=== PATIENT | female | born 1975 | race American Indian/Alaskan Native ===

== ENCOUNTER 2018-03-19 19:53 | Emergency (ER) | payer SELFPAY ==
[2018-03-19 21:59] LABS: BUN/Creatinine Ratio 20; Blood Urea Nitrogen 10 mg/dL (7-17); Calcium 8.9 mg/dL (8.4-10.2); Hemolysis Index 2
[2018-03-19 22:19] LABS: Hematocrit 36.1 % (30.3-42.9); Hemoglobin 11.9 gm/dl (10.1-14.3); Mean Corpuscular HGB Conc 33 % (30-34); Mean Corpuscular Hemoglobin 27 pg (28-32); Mean Corpuscular Volume 80 fl (79-97); Platelet Count 267 K/mm3 (140-440); Red Blood Count 4.48 M/mm3 (3.65-5.03)
[2018-03-20 04:04] VITALS: BP 116/82
--- NOTE | 2018-03-20 04:05 | Emergency Department Report ---
ED General Adult HPI - General Chief complaint: Extremity Injury, Upper Stated complaint: LEFT ARM PAIN Time Seen by Provider: 03/20/18 03:55 Source: patient Mode of arrival: Ambulatory Limitations: No Limitations - History of Present Illness Initial comments: Patient is 43 years old female with no significant past medical history. Patient presented to the ER complaining of left upper extremity pain that is extending from the elbow down to her hand. Patient stated that her symptoms began for a while but it just got worse in the last few weeks. 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 She denied any recent injury or trauma. No recent IV cannulation. Patient stated that her symptoms are worse at night. - Related Data Previous Rx's Medication Instructions Recorded Last Taken Type Naproxen [Naprosyn] 500 mg PO BID #14 tablet 03/20/18 Unknown Rx Allergies Allergy/AdvReac Type Severity Reaction Status Date / Time No Known Allergies Allergy Unverified 03/19/18 20:51 ED Review of Systems ROS: Stated complaint: LEFT ARM PAIN Other details as noted in HPI Comment: All other systems reviewed and negative Constitutional: denies: chills, fever Respiratory: denies: cough, orthopnea, shortness of breath, SOB with exertion Cardiovascular: denies: chest pain, palpitations Gastrointestinal: denies: abdominal pain, nausea, vomiting ED Past Medical Hx - Past Medical History Previous Medical History?: No - Surgical History Past Surgical History?: Yes Additional Surgical History: hysterectomy - Social History Smoking Status: Never Smoker Substance Use Type: None - Medications Home Medications: Home Medications Medication Instructions Recorded Confirmed Last Taken Type Naproxen [Naprosyn] 500 mg PO BID #14 tablet 03/20/18 Unknown Rx ED Physical Exam - General Limitations: No Limitations General appearance: alert, in no apparent distress - Head Head exam: Present: atraumatic, normocephalic, normal inspection - Eye Eye exam: Present: normal appearance, PERRL - ENT ENT exam: Present: normal exam, normal orophraynx - Neck Neck exam: Present: normal inspection, full ROM. Absent: tenderness, meningismus, lymphadenopathy, thyromegaly - Respiratory Respiratory exam: Present: normal lung sounds bilaterally. Absent: respiratory distress, chest wall tenderness - Cardiovascular Cardiovascular Exam: Present: regular rate, normal rhythm, normal heart sounds - GI/Abdominal GI/Abdominal exam: Present: soft. Absent: tenderness, guarding - Extremities Exam Extremities exam: Present: normal inspection, full ROM, normal capillary refill. Absent: tenderness, pedal edema, joint swelling, calf tenderness - Neurological Exam Neurological exam: Present: alert, oriented X3, CN II-XII intact, normal gait - Skin Skin exam: Present: warm, intact, normal color ED Course Vital Signs 03/19/18 03/19/18 03/20/18 20:33 20:47 03:55 Temperature 98.9 F 98.9 F 98 F Pulse Rate 74 70 61 Respiratory 18 18 16 Rate Blood Pressure 125/84 125/84 Blood Pressure 116/82 [Right] O2 Sat by Pulse 100 100 99 Oximetry ED Medical Decision Making - Lab Data Result diagrams: 03/19/18 21:37 03/19/18 21:37 Critical care attestation.: If time is entered above; I have spent that time in minutes in the direct care of this critically ill patient, excluding procedure time. ED Disposition Clinical Impression: Carpal tunnel syndrome, Left arm pain Disposition: - TO HOME OR SELFCARE Is pt being admited?: No Condition: Stable Instructions: Carpal Tunnel Syndrome (ED) Additional Instructions: He has a wrist brace especially at night Prescriptions: Naproxen [Naprosyn] 500 mg PO BID #14 tablet Referrals: PRIMARY CARE, [Primary Care Provider] - 3-5 Days
== END 2018-03-20 04:18 | disposition home or self-care (01) ==
LOC: ED 19:53
DX: G56.02 Carpal tunnel syndrome, left upper limb (principal); Z90.710 Acquired absence of both cervix and uterus
CPT/HCPCS: 36415; 80048; 85027; 85379; 99283

== ENCOUNTER 2018-04-09 20:41 | Emergency (ER) | payer SELFPAY ==
[2018-04-09] MEDS ORDERED: TYLENOL ONE (22:48)
[2018-04-09 22:49] VITALS: BP 120/78
[2018-04-09] MEDS ORDERED: TYLENOL PO ONE (22:50)
== END 2018-04-10 00:23 ==
LOC: ED 20:41
DX: R51 Headache (principal); Z53.21 Procedure and treatment not carried out due to patient leaving prior to being seen by health care provider